=== PATIENT | female | born 1970 | race Hispanic/Latino ===

== ENCOUNTER 2022-09-14 17:47 | Emergency (ER) | payer OTHER | END 2022-09-14 19:47 | disposition home or self-care (01) | LOC: CSHERS 17:47 | DX: S92.354A Nondisplaced fracture of fifth metatarsal bone, right foot, initial encounter for closed fracture (principal); I10 Essential (primary) hypertension; Z87.891 Personal history of nicotine dependence; W17.2XXA Fall into hole, initial encounter ==